=== PATIENT | female | born 2000 | race Caucasian/White ===

== ENCOUNTER → 2021-04-17 | Outpatient (CLI) | payer BC, OTHER ==
--- NOTE | 2021-04-17 09:53 | Diagnostic Imaging Report ---
Exam: CTA left ankle and foot without contrast. Date: April 17, 2021. Indication: 21-year-old female, pain in the region of the navicular. Evaluation for stress fracture. The patient is a runner. Comparison: None. Technique: Contiguous axial CT images at the level of the left foot and ankle were obtained without contrast. Coronal and sagittal reformats were obtained and provided. All CT scans use one or more of the following dose optimizing techniques: automated exposure control, MA and/or KvP adjustment based on patient size and exam type or iterative reconstruction. Findings: There is a lucency in the mid navicular which is linear in orientation and consistent with a nondisplaced stress fracture best seen on axial image 81 and adjacent sequential images. There is no additional identified acute fracture. There is no subluxation or dislocation. There is no radiopaque foreign body. The joint spaces are well preserved. Impression: 1. Nondisplaced incomplete fracture of the navicular which is most compatible with a stress fracture. Dictated by: Dictated on workstation # [id number]
== END ==
LOC: RAD 09:08
PROVIDERS: ATTEND Family Medicine Sports Medicine
DX: M84.375G Stress fracture, left foot, subsequent encounter for fracture with delayed healing (principal)
CPT/HCPCS: 73700